=== PATIENT | female | born 1995 | race Caucasian/White ===

== ENCOUNTER 2016-08-03 13:15 | Outpatient (CLI) | payer MEDICAID ==
[2016-08-03] MEDS ORDERED: LACTATED RINGERS 500 ML IV ONE (13:48)
[2016-08-03 13:57] VITALS: BP 104/60
[2016-08-03 14:43] LABS: Bilirubin,Urine NEG (Negative); Blood,Urine NEG (Negative); Ketones,Urine NEG (Negative); Leukocyte Esterase,Urine NEG (Negative); Nitrite,Urine NEG (Negative); Protein,Urine <15 mg/dL mg/dL (Negative); Urobilinogen,Urine < 2.0 mg/dL (<2.0)
[2016-08-03] MEDS ORDERED: BRETHINE IVP ONE (15:17)
== END 2016-08-03 16:00 | disposition home or self-care (01) ==
LOC: TRG 13:15
PROVIDERS: ATTEND Obstetrics & Gynecology
DX: O47.02 False labor before 37 completed weeks of gestation, second trimester (principal); Z3A.27 27 weeks gestation of pregnancy
CPT/HCPCS: 59025; 81001; 96360; 96372; J3105; J7120

== ENCOUNTER 2016-09-26 18:22 | Outpatient (CLI) | payer MEDICAID ==
[2016-09-26 20:46] VITALS: BP 101/61
[2016-09-26] MEDS ORDERED: ZOFRAN IV ONE (20:52)
[2016-09-26] MEDS ORDERED: IMODIUM A-D PO ONE (21:30)
== END 2016-09-26 21:50 | disposition home or self-care (01) ==
LOC: TRG 18:22
PROVIDERS: ATTEND Obstetrics & Gynecology
DX: O47.03 False labor before 37 completed weeks of gestation, third trimester (principal); Z87.891 Personal history of nicotine dependence; Z3A.35 35 weeks gestation of pregnancy
CPT/HCPCS: 59025; J2405

== ENCOUNTER 2017-12-19 03:43 | Emergency (ER) | payer MEDICAID ==
[2017-12-19] MEDS ORDERED: XYLOCAINE 1% MPF 5 mL INFILTRATI ONE (06:49)
[2017-12-19] MEDS ORDERED: ZITHROMAX PO ONE (06:49)
[2017-12-19] MEDS ORDERED: ROCEPHIN IM ONE (06:49)
--- NOTE | 2017-12-19 06:53 | Emergency Department Report ---
ED Female HPI - General Chief complaint: Urogenital-Female Stated complaint: LOWER STOMACH PAIN VAGINAL DISCHARGE Time Seen by Provider: 12/19/17 06:44 Source: patient Mode of arrival: Ambulatory Limitations: No Limitations - History of Present Illness Initial comments: Patient is 22 years old female with no significant past medical history except for gonorrhea while she was a few month ago. Patient stated that she received Rocephin and Zithromax and that cured her symptoms but she had 6 or the same partner who gave had gonorrhea in the beginning. Patient presented with vaginal discharge for more than one month now associated his lower abdominal pain. Patient denied any vomiting or urinary symptoms. MD Complaint: vaginal discharge - Related Data Previous Rx's Medication Instructions Recorded Last Taken Type Famotidine [Pepcid] 20 mg PO BID #30 tablet 03/03/16 Unknown Rx Vit-Fe Fumar-FA [ 1 tab PO QDAY #30 tablet 03/03/16 Unknown Rx Vitamin] Ferrous Sulfate [Feosol 325 MG tab] 325 mg PO BID #60 tablet 10/24/16 Unknown Rx Ibuprofen [Motrin 800 MG tab] 800 mg PO Q6H PRN #30 tablet 10/24/16 Unknown Rx oxyCODONE /ACETAMINOPHEN [Percocet 1 - 2 tab PO Q4H PRN #30 tablet 10/24/16 Unknown Rx 5/325 mg] Allergies Allergy/AdvReac Type Severity Reaction Status Date / Time No Known Allergies Allergy Verified 03/03/16 05:20 ED Review of Systems ROS: Stated complaint: LOWER STOMACH PAIN VAGINAL DISCHARGE Other details as noted in HPI Comment: All other systems reviewed and negative Constitutional: denies: chills, fever Respiratory: denies: cough, orthopnea, shortness of breath, SOB with exertion, SOB at rest, wheezing Cardiovascular: denies: chest pain, palpitations Gastrointestinal: abdominal pain, nausea. denies: vomiting, diarrhea, constipation, hematemesis, melena, hematochezia Genitourinary: discharge. denies: urgency, dysuria, frequency, abnormal menses Neurological: denies: headache, weakness, numbness, paresthesias, confusion, abnormal gait, vertigo ED Past Medical Hx - Past Medical History Previous Medical History?: Yes Hx Hypertension: No Hx Congestive Heart Failure: No Hx Diabetes: No Hx Deep Vein Thrombosis: No Hx Renal Disease: No Hx Sickle Cell Disease: No Hx Seizures: No Hx Asthma: Yes (as a child) Hx COPD: No Hx HIV: No - Surgical History Past Surgical History?: Yes Additional Surgical History: c section x1 - Social History Smoking Status: Never Smoker Substance Use Type: Alcohol - Medications Home Medications: Home Medications Medication Instructions Recorded Confirmed Last Taken Type Famotidine [Pepcid] 20 mg PO BID #30 tablet 03/03/16 10/24/16 Unknown Rx Vit-Fe Fumar-FA [ 1 tab PO QDAY #30 tablet 03/03/16 10/24/16 Unknown Rx Vitamin] Ferrous Sulfate [Feosol 325 MG tab] 325 mg PO BID #60 tablet 10/24/16 Unknown Rx Ibuprofen [Motrin 800 MG tab] 800 mg PO Q6H PRN #30 tablet 10/24/16 Unknown Rx oxyCODONE /ACETAMINOPHEN [Percocet 1 - 2 tab PO Q4H PRN #30 tablet 10/24/16 Unknown Rx 5/325 mg] ED Physical Exam - General Limitations: No Limitations General appearance: alert, in no apparent distress - Head Head exam: Present: atraumatic, normocephalic, normal inspection - Eye Eye exam: Present: normal appearance, PERRL - ENT ENT exam: Present: normal exam, normal orophraynx - Neck Neck exam: Present: normal inspection, full ROM. Absent: tenderness, meningismus, lymphadenopathy, thyromegaly - Respiratory Respiratory exam: Present: normal lung sounds bilaterally. Absent: respiratory distress, wheezes, rales, rhonchi, stridor, chest wall tenderness, accessory muscle use, decreased breath sounds, prolonged expiratory - Cardiovascular Cardiovascular Exam: Present: regular rate, normal rhythm, normal heart sounds - GI/Abdominal GI/Abdominal exam: Present: soft, normal bowel sounds. Absent: distended, tenderness, guarding, rebound, rigid, organomegaly, mass, bruit, pulsatile mass , hernia - Extremities Exam Extremities exam: Present: normal inspection, full ROM, normal capillary refill - Back Exam Back exam: Present: normal inspection, full ROM. Absent: tenderness, CVA tenderness (R), CVA tenderness (L), muscle spasm, paraspinal tenderness, vertebral tenderness - Neurological Exam Neurological exam: Present: alert, oriented X3, CN II-XII intact, normal gait, reflexes normal - Skin Skin exam: Present: warm, intact, normal color ED Course Vital Signs 12/19/17 05:03 Temperature 98.4 F Pulse Rate 60 Respiratory 18 Rate Blood Pressure 104/68 O2 Sat by Pulse 100 Oximetry Critical care attestation.: If time is entered above; I have spent that time in minutes in the direct care of this critically ill patient, excluding procedure time. ED Disposition Clinical Impression: STD (female) Disposition: DC-01 TO HOME OR SELFCARE Is pt being admited?: No Condition: Stable Instructions: Safe Sex (ED), Sexually Transmitted Diseases (ED) Referrals: PRIMARY CARE, [Primary Care Provider] - 3-5 Days
[2017-12-19] MEDS ORDERED: XYLOCAINE 1% 20 mL ONE (07:00)
[2017-12-19 07:01] LABS: Bacteria,Urine 1+ /HPF (Negative); Bilirubin,Urine NEG (Negative); Blood,Urine LG (Negative); Color,Urine Yellow (Yellow); Mucus,Urine 1+ /HPF
[2017-12-19 07:09] LABS: HCG Qualitative,Urine Negative (Negative); RBC,Urine > 182.0 /HPF (0.0-6.0)
[2017-12-19 07:47] VITALS: BP 117/76
== END 2017-12-19 07:46 | disposition home or self-care (01) ==
LOC: ED 03:43
DX: A64 Unspecified sexually transmitted disease (principal); J45.909 Unspecified asthma, uncomplicated
CPT/HCPCS: 81001; 81025; 96372; 99283; J0696

== ENCOUNTER 2020-03-19 21:26 | Outpatient (CLI) | payer MEDICAID, OTHER ==
[2020-03-19 22:09] VITALS: BP 113/67
[2020-03-19 23:00] LABS: Amphetamine Screen,Urine PRESUMPTIVE NEGATIVE; Benzodiazepines Screen,Urine PRESUMPTIVE NEGATIVE; Cannabinoid Screen,Urine PRESUMPTIVE NEGATIVE; Cocaine Screen,Urine PRESUMPTIVE NEGATIVE; Methadone Screen,Urine PRESUMPTIVE NEGATIVE; Opiate Screen,Urine PRESUMPTIVE NEGATIVE
[2020-03-19 23:03] LABS: Bacteria,Urine 2+ /HPF (Negative); Bilirubin,Urine NEG (Negative); Blood,Urine NEG (Negative); Color,Urine Yellow (Yellow); Mucus,Urine FEW /HPF; Urobilinogen,Urine < 2.0 mg/dL (<2.0)
--- NOTE | 2020-03-20 00:28 | Ultrasound Report ---
ULTRASOUND OBSTETRIC, 03/19/2020 CLINICAL INFORMATION/INDICATION: Evaluate well-being COMPARISON: No prior studies are available for comparison FINDINGS: There is a single intrauterine . BPD = 8.6 cm = 34 weeks, 6 day(s). Head circumference = 31.2 cm = 34 weeks, 6 day(s). Abdominal circumference = 31.8 cm = 35 weeks, 5 day(s). Femur length = 6.9 cm = 35 weeks, 1 day(s). Overall estimated sonographic age = 35 weeks, 1 day(s). heart rate is 140 beats per minute. Estimated weight is 2662 grams. position is cephalic. Placenta is anterior and grade 2 . Amniotic fluid volume appears normal measuring 7.6 cm Impression: 1. Single living intrauterine with estimated sonographic age of 35 weeks, 1 day(s). Signer Name: Karime Catherine MD Signed: 03/20/2020 12:23 AM Workstation Name: [id number]
== END 2020-03-20 00:15 | disposition home or self-care (01) ==
LOC: TRG 21:26 → APU 21:30 → TRG 03-20 00:15
PROVIDERS: ATTEND Obstetrics & Gynecology
DX: O47.03 False labor before 37 completed weeks of gestation, third trimester (principal); Z3A.35 35 weeks gestation of pregnancy
CPT/HCPCS: 59025; 76805; 80307; 81001

== ENCOUNTER 2020-04-28 22:22 | Observation (INO) | payer OTHER ==
--- NOTE | 2020-04-28 23:54 | Emergency Department Report ---
ED Neuro Deficit HPI - General Chief Complaint: Neuro Symptoms/Deficit Stated Complaint: TWITCHING/FAINTING/CONFUSION Time Seen by Provider: 04/28/20 23:49 Source: patient Mode of arrival: Ambulatory Limitations: No Limitations - History of Present Illness Initial Comments: Patient is a 24-year-old female that presents emergency room with complaints of numbness, tingling, confusion, syncope and possible seizure. Patient states that her twitching and numbness started 3 days ago. Patient states that her numbness tingling started 3 days ago. Patient states that this evening she had a syncopal episode that was witnessed by her brother. The patient states that her brother told her that she was shaking and woke up confused. Patient states that she had a baby 23 days ago. Patient states that her was uncomplicated. Patient states that she is also have difficulty walking and weakness in her legs that started after the syncopal and seizure-like activity. Patient states that the seizure and syncopal episodes were at 6 PM today. Patient denies recent travel. Patient denies recent international travel. Patient denies exposure to the novel coronavirus. Patient denies sick contacts. Patient denies fever and chills. Patient denies cough. Patient denies diarrhea. Patient denies coming in contact with anybody with symptoms of the novel coronavirus. -: Sudden Location: left leg, right leg Presenting Symptoms: Present: Altered Mental Status History of same: No Place: home Severity: severe Improves With: none Worsens With: none On Anticoagulants: No Context: sudden onset Associated Symptoms: confusion, seizures, weakness. denies: chest pain, cough, diaphoresis, fever/chills, malise, nausea/vomiting, vertigo, shortness of breath, syncope Treatments Prior to Arrival: none - Related Data Home Medications: Previous Rx's Medication Instructions Recorded Last Taken Type Ibuprofen [Motrin 800 MG tab] 800 mg PO TID PRN #30 tablet 04/05/20 Unknown Rx oxyCODONE /ACETAMINOPHEN [Percocet 1 - 2 tab PO Q6HR PRN #14 tablet 04/05/20 Unknown Rx 5/325 mg] Allergies/Adverse Reactions: Allergies Allergy/AdvReac Type Severity Reaction Status Date / Time No Known Allergies Allergy Verified 03/03/16 05:20 ED Review of Systems ROS: Stated complaint: TWITCHING/FAINTING/CONFUSION Other details as noted in HPI Constitutional: weakness. denies: chills, fever Eyes: denies: eye pain, eye discharge, vision change ENT: denies: ear pain, throat pain Respiratory: denies: cough, shortness of breath, wheezing Cardiovascular: denies: chest pain, palpitations Endocrine: no symptoms reported Gastrointestinal: denies: abdominal pain, nausea, diarrhea Genitourinary: denies: urgency, dysuria, discharge Musculoskeletal: denies: back pain, joint swelling, arthralgia Skin: denies: rash, lesions Neurological: weakness, numbness, confusion, abnormal gait. denies: headache Psychiatric: denies: anxiety, depression Hematological/Lymphatic: denies: easy bleeding, easy bruising ED Past Medical Hx - Past Medical History Previous Medical History?: Yes Hx Hypertension: No Hx Heart Attack/AMI: No Hx Congestive Heart Failure: No Hx Diabetes: No Hx Deep Vein Thrombosis: No Hx Renal Disease: Yes (kidney infection 09/2019) Hx Sickle Cell Disease: No Hx Seizures: No Hx Asthma: Yes (as a child) Hx COPD: No Hx HIV: No - Surgical History Past Surgical History?: No Additional Surgical History: c section x1 - Family History Family history: no significant - Social History Smoking Status: Never Smoker Substance Use Type: None - Medications Home Medications: Home Medications Medication Instructions Recorded Confirmed Last Taken Type Ibuprofen [Motrin 800 MG tab] 800 mg PO TID PRN #30 tablet 04/05/20 Unknown Rx oxyCODONE /ACETAMINOPHEN [Percocet 1 - 2 tab PO Q6HR PRN #14 tablet 04/05/20 Unknown Rx 5/325 mg] ED Neuro Physical Exam - General Limitations: No Limitations General appearance: alert, in no apparent distress Suspected Stroke: No - Head Head exam: Present: atraumatic, normocephalic - Eye Eye exam: Present: normal appearance, PERRL Pupils: Present: normal accommodation - ENT ENT exam: Present: mucous membranes moist - Neck Neck exam: Present: normal inspection - Respiratory Respiratory exam: Present: normal lung sounds bilaterally. Absent: respiratory distress - Cardiovascular Cardiovascular Exam: Present: regular rate, normal rhythm. Absent: systolic murmur, diastolic murmur, rubs, gallop - GI/Abdominal GI/Abdominal exam: Present: soft, normal bowel sounds - Rectal Rectal exam: Present: deferred - Extremities Exam Extremities exam: Present: normal inspection - Back Exam Back exam: Present: normal inspection - Neurological Exam Neurological exam: Present: alert, oriented X3, CN II-XII intact, abnormal gait - NIHSS Assessment Interval: Baseline 1a. Level of Consciousness: alert/keenly responsive 1b. LOC Questions: answers both correctly 1c. LOC Commands: performs tasks correctly 2. Best Gaze: normal 3. Visual: no visual loss 4. Facial Palsy: normal symmetrical movement 5b. Motor Arm Right: no drift 5a. Motor Arm Left: no drift 6a. Motor Leg Left: drift 6b. Motor Leg Right: drift 7. Limb Ataxia: absent 8. Sensory: normal 9. Best Language: no aphasia 10. Dysarthria: normal 11. Extinction/Inattention: no abnormality Total Score: 2 Stroke Severity: Minor Stroke - Psychiatric Psychiatric exam: Present: normal affect, normal mood - Skin Skin exam: Present: warm, dry, intact, normal color. Absent: rash ED Course Vital Signs 04/28/20 04/29/20 23:31 03:41 Temperature 98.1 F Pulse Rate 73 Respiratory 16 16 Rate Blood Pressure 103/66 O2 Sat by Pulse 99 Oximetry - Reevaluation(s) Reevaluation #1: I discussed all results with patient. I discussed plan of care with patient. Patient agrees with plan of care and admission. Patient to be admitted to the hospitalist service. 04/29/20 02:41 - Consultations Consultation #1: I discussed case with neurologist. Neurologist states he will see the patient after she returned from CT scan. The neurologist recommends Keppra along with the magnesium drip. 04/29/20 00:10 Neurologist recommends admission and MRI as well as an EEG. Neurology is going to put labs that he recommends in his note. 04/29/20 00:26 Consultation #2: I discussed the case with Dr. Nguyễn, RELIGIOUS EDUCATION DIRECTOR. Dr. Nguyễn states they can consult on the patient if the primary team needs AIRPLANE ENGINEER services. 04/29/20 01:20 Consultation #3: Hospitalist consulted for admission. Hospitalist to admit patient. 04/29/20 02:41 - Lab Data Result diagrams: 04/29/20 00:24 04/29/20 00:24 Lab Results 04/29/20 04/29/20 04/29/20 Range/Units 00:24 00:24 00:24 WBC 5.3 (4.5-11.0) K/mm3 RBC 4.91 (3.65-5.03) M/mm3 Hgb 12.1 (10.1-14.3) gm/dl Hct 37.8 (30.3-42.9) % MCV 77 L (79-97) fl MCH 25 L (28-32) pg MCHC 32 (30-34) % RDW 16.6 H (13.2-15.2) % Plt Count 204 (140-440) K/mm3 Lymph % (Auto) 26.7 (13.4-35.0) % [place] % (Auto) 7.6 H (0.0-7.3) % Eos % (Auto) 2.0 (0.0-4.3) % Baso % (Auto) 0.4 (0.0-1.8) % Lymph # (Auto) 1.4 (1.2-5.4) K/mm3 [place] # (Auto) 0.4 (0.0-0.8) K/mm3 Eos # (Auto) 0.1 (0.0-0.4) K/mm3 Baso # (Auto) 0.0 (0.0-0.1) K/mm3 Seg Neutrophils % 63.3 (40.0-70.0) % Seg Neutrophils # 3.3 (1.8-7.7) K/mm3 Sodium 139 (137-145) mmol/L Potassium 4.2 (3.6-5.0) mmol/L Chloride 104.6 (98-107) mmol/L Carbon Dioxide 24 (22-30) mmol/L Anion Gap 15 mmol/L BUN 9 (7-17) mg/dL Creatinine 0.6 (0.6-1.2) mg/dL Estimated GFR > 60 ml/min BUN/Creatinine Ratio 15 % Glucose 98 (65-100) mg/dL Calcium 9.2 (8.4-10.2) mg/dL Total Bilirubin 0.20 (0.1-1.2) mg/dL AST 17 (5-40) units/L ALT 18 (7-56) units/L Alkaline Phosphatase 125 (35-129) units/L Total Protein 7.2 (6.3-8.2) g/dL Albumin 4.0 (3.9-5) g/dL Albumin/Globulin Ratio 1.3 % HCG, Qual Negative (Negative) Urine Color (Yellow) Urine Turbidity (Clear) Urine pH (5.0-7.0) Ur Specific [place] (1.003-1.030) Urine Protein (Negative) mg/dL Urine Glucose (UA) (Negative) mg/dL Urine Ketones (Negative) mg/dL Urine Blood (Negative) Urine Nitrite (Negative) Urine Bilirubin (Negative) Urine Urobilinogen (<2.0) mg/dL Ur Leukocyte Esterase (Negative) Urine WBC (Auto) (0.0-6.0) /HPF Urine RBC (Auto) (0.0-6.0) /HPF U Epithel Cells (Auto) (0-13.0) /HPF Urine Bacteria (Auto) (Negative) /HPF Urine Mucus /HPF Urine Yeast (Budding) /HPF 04/29/20 Range/Units 03:12 WBC (4.5-11.0) K/mm3 RBC (3.65-5.03) M/mm3 Hgb (10.1-14.3) gm/dl Hct (30.3-42.9) % MCV (79-97) fl MCH (28-32) pg MCHC (30-34) % RDW (13.2-15.2) % Plt Count (140-440) K/mm3 Lymph % (Auto) (13.4-35.0) % [place] % (Auto) (0.0-7.3) % Eos % (Auto) (0.0-4.3) % Baso % (Auto) (0.0-1.8) % Lymph # (Auto) (1.2-5.4) K/mm3 [place] # (Auto) (0.0-0.8) K/mm3 Eos # (Auto) (0.0-0.4) K/mm3 Baso # (Auto) (0.0-0.1) K/mm3 Seg Neutrophils % (40.0-70.0) % Seg Neutrophils # (1.8-7.7) K/mm3 Sodium (137-145) mmol/L Potassium (3.6-5.0) mmol/L Chloride (98-107) mmol/L Carbon Dioxide (22-30) mmol/L Anion Gap mmol/L BUN (7-17) mg/dL Creatinine (0.6-1.2) mg/dL Estimated GFR ml/min BUN/Creatinine Ratio % Glucose (65-100) mg/dL Calcium (8.4-10.2) mg/dL Total Bilirubin (0.1-1.2) mg/dL AST (5-40) units/L ALT (7-56) units/L Alkaline Phosphatase (35-129) units/L Total Protein (6.3-8.2) g/dL Albumin (3.9-5) g/dL Albumin/Globulin Ratio % HCG, Qual (Negative) Urine Color Yellow (Yellow) Urine Turbidity Cloudy (Clear) Urine pH 6.0 (5.0-7.0) Ur Specific [place] 1.004 (1.003-1.030) Urine Protein <15 mg/dl (Negative) mg/dL Urine Glucose (UA) Neg (Negative) mg/dL Urine Ketones Neg (Negative) mg/dL Urine Blood Lg (Negative) Urine Nitrite Neg (Negative) Urine Bilirubin Neg (Negative) Urine Urobilinogen < 2.0 (<2.0) mg/dL Ur Leukocyte Esterase Lg (Negative) Urine WBC (Auto) 26.0 H (0.0-6.0) /HPF Urine RBC (Auto) 7.0 (0.0-6.0) /HPF U Epithel Cells (Auto) 21.0 H (0-13.0) /HPF Urine Bacteria (Auto) 2+ (Negative) /HPF Urine Mucus Few /HPF Urine Yeast (Budding) 1+ /HPF - Radiology Data Radiology results: report reviewed, image reviewed CT HEAD WITHOUT CONTRAST INDICATION: Syncope, confusion, unstable gait TECHNIQUE: All CT scans at this location are performed using CT dose reduction for ALARA by means of automated exposure control. COMPARISON: None available. FINDINGS: BRAIN: No hemorrhage or mass effect are seen. No evidence of acute infarction is noted. Mild motion artifact is seen superiorly. ORBITS: Normal as visualized. SOFT TISSUES OF HEAD: Normal. CALVARIUM: Normal. VISUALIZED PARANASAL SINUSES AND MASTOID AIR CELLS: Clear. ADDITIONAL FINDINGS: None. IMPRESSION: No acute intracranial abnormality. - Medical Decision Making Patient is a 24-year-old female that presents emergency room with multiple complaints. Patient complaints include numbness, tingling, seizure, syncope, confusion, difficulties walking. Patient delivered via 23 days ago. Patient had a head CT which was negative for acute finding. Neurology consult. Neurology recommendations received. Patient given magnesium and Keppra early and ER stay. No further seizure activity noted. Patient's labs done and essentially unremarkable except for UTI. Patient admitted to the hospital service for further evaluation treatment. - Differential Diagnosis Seizure, syncope, electrolyte imbalance, UTI, eclampsia Critical Care Time: Yes Critical care time in (mins) excluding proc time.: 35 Critical care attestation.: If time is entered above; I have spent that time in minutes in the direct care of this critically ill patient, excluding procedure time. Critical Care Time: 35 minutes ED Disposition Clinical Impression: Seizure-like activity, Confusion, Weakness, Difficulty walking, Seizure Syncope Qualifiers: Syncope type: unspecified Qualified Code(s): R55 - Syncope and collapse Disposition: DC-09 OP ADMIT IP TO THIS HOSP Is pt being admited?: No Does the pt Need Aspirin: No Condition: Critical Instructions: Syncope (ED) Time of Disposition: 02:42
[2020-04-29] MEDS ORDERED: MAGNESIUM SULFATE 2 GM/50 ML BAG IV ONE (00:01)
[2020-04-29] MEDS ORDERED: levETIRAcetam 1000 MG/NS 0.75% 1,000 MG/100 ML BAG IV ONE (00:13)
--- NOTE | 2020-04-29 00:24 | Emergency Department Report ---
ED Neuro Deficit HPI - General Chief Complaint: Neuro Symptoms/Deficit Stated Complaint: TWITCHING/FAINTING/CONFUSION Time Seen by Provider: 04/28/20 23:49 Source: patient Mode of arrival: Ambulatory Limitations: No Limitations - History of Present Illness Initial Comments: [facility] Tele[facility]rology Consult Services Stat Consult Date of Service: 04/28/2020 23:51:40 Impression: R56.9 - Seizures Comments/Sign-Out: Acute onset seizure like activity with continued tremors of the right arm and leg. Suggest admit for advanced imaging and labs to look for etiology. CT HEAD: Showed No Acute Hemorrhage or Acute Core Infarct Metrics: [employer] Notification Time: 04/28/2020 23:49:59 Stamp Time: 04/28/2020 23:51:40 Our recommendations are outlined below. Recommendations: Start Keppra 500 mg BID EEG MRI brain with and without contrast Cardiac syncopal work up [employer]atics B12, autoimmune screen (ABDI, SSA etc), TFTs, ammonia, copper, zinc Agree with Magnesium Disposition: Neurology Follow Up Recommended Sign Out: Discussed with Emergency Department Provider Chief Complaint: Seizure like activity History of Present Illness: Patient is a 24 year old Female. 24F with recent post here for acute neuro changes States that she has had numbness and tingling starting 3 days ago generalized. Before coming in she had a syncopal episode that was witnessed by her brother with seizure like activity. She was confused after the event which has improved. Had a post 23 days ago. Examination: BP(103/65), Pulse(82), 1A: Level of Consciousness - Alert; keenly responsive + 0 1B: Ask Month and Age - Both Questions Right + 0 1C: Blink Eyes & Squeeze Hands - Performs Both Tasks + 0 2: Test Horizontal Extraocular Movements - Normal + 0 3: Test Visual Andersen - No Visual Loss + 0 4: Test Facial Palsy (Use Grimace if Obtunded) - Normal symmetry + 0 5A: Test Left Arm Motor Drift - No Drift for 10 Seconds + 0 5B: Test Right Arm Motor Drift - No Drift for 10 Seconds + 0 6A: Test Left Leg Motor Drift - No Drift for 5 Seconds + 0 6B: Test Right Leg Motor Drift - No Drift for 5 Seconds + 0 7: Test Limb Ataxia (FNF/Heel-Hassan) - No Ataxia + 0 8: Test Sensation - Normal; No sensory loss + 0 9: Test Language/Aphasia - Normal; No aphasia + 0 10: Test Dysarthria - Normal + 0 11: Test Extinction/Inattention - No abnormality + 0 NIHSS Score: 0 Due to the immediate potential for life-threatening deterioration due to underlying acute neurologic illness, I spent 25 minutes providing critical care. This time includes time for face to face visit via telemedicine, review of medical records, imaging studies and discussion of findings with providers, the patient and/or family. Dr Kevon Dong [employer] Case [id number] Location: left leg, right leg History of same: No Place: home Severity: severe Improves With: none Worsens With: none On Anticoagulants: No Treatments Prior to Arrival: none - Related Data Home Medications: Previous Rx's Medication Instructions Recorded Last Taken Type Ibuprofen [Motrin 800 MG tab] 800 mg PO TID PRN #30 tablet 04/05/20 Unknown Rx oxyCODONE /ACETAMINOPHEN [Percocet 1 - 2 tab PO Q6HR PRN #14 tablet 04/05/20 Unknown Rx 5/325 mg] Allergies/Adverse Reactions: Allergies Allergy/AdvReac Type Severity Reaction Status Date / Time No Known Allergies Allergy Verified 03/03/16 05:20 ED Review of Systems ROS: Stated complaint: TWITCHING/FAINTING/CONFUSION Other details as noted in HPI Constitutional: weakness. denies: chills, fever Eyes: denies: eye pain, eye discharge, vision change ENT: denies: ear pain, throat pain Respiratory: denies: cough, shortness of breath, wheezing Cardiovascular: denies: chest pain, palpitations Endocrine: no symptoms reported Gastrointestinal: denies: abdominal pain, nausea, diarrhea Genitourinary: denies: urgency, dysuria, discharge Musculoskeletal: denies: back pain, joint swelling, arthralgia Skin: denies: rash, lesions Neurological: weakness, numbness, confusion, abnormal gait. denies: headache Psychiatric: denies: anxiety, depression Hematological/Lymphatic: denies: easy bleeding, easy bruising ED Past Medical Hx - Past Medical History Previous Medical History?: Yes Hx Hypertension: No Hx Heart Attack/AMI: No Hx Congestive Heart Failure: No Hx Diabetes: No Hx Deep Vein Thrombosis: No Hx Renal Disease: Yes (kidney infection 09/2019) Hx Sickle Cell Disease: No Hx Seizures: No Hx Asthma: Yes (as a child) Hx COPD: No Hx HIV: No - Surgical History Past Surgical History?: No Additional Surgical History: c section x1 - Social History Smoking Status: Never Smoker Substance Use Type: None - Medications Home Medications: Home Medications Medication Instructions Recorded Confirmed Last Taken Type Ibuprofen [Motrin 800 MG tab] 800 mg PO TID PRN #30 tablet 04/05/20 Unknown Rx oxyCODONE /ACETAMINOPHEN [Percocet 1 - 2 tab PO Q6HR PRN #14 tablet 04/05/20 Unknown Rx 5/325 mg] ED Neuro Physical Exam - General Limitations: No Limitations General appearance: alert, in no apparent distress Suspected Stroke: Yes (no) - NIHSS Assessment Interval: Baseline (0) 1a. Level of Consciousness: alert/keenly responsive 1b. LOC Questions: answers both correctly 1c. LOC Commands: performs tasks correctly 2. Best Gaze: normal 3. Visual: no visual loss 4. Facial Palsy: normal symmetrical movement 5b. Motor Arm Right: no drift 5a. Motor Arm Left: no drift 6a. Motor Leg Left: no drift 6b. Motor Leg Right: no drift 7. Limb Ataxia: absent 8. Sensory: normal 9. Best Language: no aphasia 10. Dysarthria: normal 11. Extinction/Inattention: no abnormality Total Score: 0 Stroke Severity: No Stroke Symptoms ED Course Vital Signs 04/28/20 23:31 Temperature 98.1 F Pulse Rate 73 Respiratory 16 Rate Blood Pressure 103/66 O2 Sat by Pulse 99 Oximetry Critical care attestation.: If time is entered above; I have spent that time in minutes in the direct care of this critically ill patient, excluding procedure time. ED Disposition Clinical Impression: Seizure Disposition: OP ADMIT IP TO THIS HOSP Is pt being admited?: Yes Condition: Stable Instructions: Syncope (ED) Referrals: PRIMARY CARE, [Primary Care Provider] - 3-5 Days
--- NOTE | 2020-04-29 00:26 | Cat Scan Report ---
CT HEAD WITHOUT CONTRAST INDICATION: Syncope, confusion, unstable gait TECHNIQUE: All CT scans at this location are performed using CT dose reduction for ALARA by means of automated exposure control. COMPARISON: None available. FINDINGS: BRAIN: No hemorrhage or mass effect are seen. No evidence of acute infarction is noted. Mild motion a rtifact is seen superiorly. ORBITS: Normal as visualized. SOFT TISSUES OF HEAD: Normal. CALVARIUM: Normal. VISUALIZED PARANASAL SINUSES AND MASTOID AIR CELLS: Clear. ADDITIONAL FINDINGS: None. IMPRESSION: No acute intracranial abnormality. Signer Name: Dat Moya MD Signed: 04/29/2020 12:21 AM Workstation Name: [id number]
[2020-04-29] MEDS: MAGNESIUM SULFATE 40GM/1000ML 40 GM/1,000 ML BAG IV ONE ×2 (00:46→01:50)
[2020-04-29 02:10] LABS: Basophils % (Auto) 0.4 % (0.0-1.8); Eosinophils # (Auto) 0.1 K/mm3 (0.0-0.4); Hematocrit 37.8 % (30.3-42.9); Hemoglobin 12.1 gm/dl (10.1-14.3); Lymphocytes # (Auto) 1.4 K/mm3 (1.2-5.4); Lymphocytes % (Auto) 26.7 % (13.4-35.0); Mean Corpuscular HGB Conc 32 % (30-34); Mean Corpuscular Volume 77 fl (79-97); Monocytes # (Auto) 0.4 K/mm3 (0.0-0.8); Monocytes % (Auto) 7.6 % (0.0-7.3); Platelet Count 204 K/mm3 (140-440); Red Blood Count 4.91 M/mm3 (3.65-5.03); Red Cell Distribution Width 16.6 % (13.2-15.2)
[2020-04-29 02:28] LABS: Alanine Aminotransferase 18 units/L (7-56); Blood Urea Nitrogen 9 mg/dL (7-17); Calcium 9.2 mg/dL (8.4-10.2); Hemolysis Index 1
[2020-04-29 02:31] LABS: BUN/Creatinine Ratio 15
[2020-04-29 03:32] LABS: Bacteria,Urine 2+ /HPF (Negative); Bilirubin,Urine NEG (Negative); Blood,Urine LG (Negative); Color,Urine Yellow (Yellow); Mucus,Urine FEW /HPF; Protein,Urine <15 mg/dL mg/dL (Negative); Urobilinogen,Urine < 2.0 mg/dL (<2.0)
[2020-04-29] MEDS ORDERED: ONDANSETRON 4 MG/2 ML INJ IV PRN (03:41)
[2020-04-29] MEDS ORDERED: ACETAMINOPHEN 325 MG TAB PO PRN (03:41)
[2020-04-29] MEDS ORDERED: MAGNESIUM HYDROXIDE (MOM) ORAL LIQD UDC PO PRN (03:41)
[2020-04-29] MEDS ORDERED: MORPHINE 2 MG/1 ML INJ IV PRN (03:41)
--- NOTE | 2020-04-29 03:51 | History and Physical Report ---
History of Present Illness Date of examination: 04/29/20 Date of admission: 04/29/2020 Chief complaint: Seizure disorder Syncope History of present illness: 4-year-old -[place] African female presenting to the emergency room today having had syncope and possible seizures at home. Patient indicates that she was having some twitching and numbness in her extremities about 3 days ago. She was said to have had a syncopal episode witnessed by her brother at home today. She was informed that she was shaking and subsequently became confused. Patient is 23 days and indicates that she did not have any complications during her . She has been having difficulty walking as she has weakness in the legs especially on the right lower extremity. She has also had some headache but denies any dizziness. She denies any blurry vision, no nausea vomiting, denies any neck pain, no chest pain or shortness of breath, no fever or chills, no hematuria or dysuria. She denies any sick contacts and no recent travel. She denies any contact with anyone with COVID-19. Patient denies any history of seizure disorder however she indicates that she has strong family history of seizures. Work-up in the emergency room today, CT scan of the head was unremarkable. Urinalysis reveals a UTI. Patient was evaluated by the tele-neurologist and recommendation is to have thyroid function tests, zinc, copper, ammonia, vitamin B12, antinuclear antigen and SSA done. MRI of the brain with and without contrast was also recommended. Patient has been started on IV Keppra for possible seizures. Past History Past Medical History: other (Asthma) Past Surgical History: Social history: no significant social history Family history: other (Seizures in mother) Medications and Allergies Allergies Allergy/AdvReac Type Severity Reaction Status Date / Time No Known Allergies Allergy Verified 03/03/16 05:20 Home Medications Medication Instructions Recorded Confirmed Last Taken Type Ibuprofen [Motrin 800 MG tab] 800 mg PO TID PRN #30 tablet 04/05/20 Unknown Rx oxyCODONE /ACETAMINOPHEN [Percocet 1 - 2 tab PO Q6HR PRN #14 tablet 04/05/20 Unknown Rx 5/325 mg] Active Meds: Active Medications Acetaminophen (Acetaminophen 325 Mg Tab) 650 mg PO Q4H PRN PRN Reason: Pain MILD(1-3)/Fever >100.5/ESTRADA Enoxaparin Sodium (Enoxaparin 40 Mg/0.4 Ml Inj) 40 mg SUB-Q QDAY@2200 YANNICK; Protocol Magnesium Sulfate (Magnesium Sulfate 40gm/1000ml) 40 gm in 1,000 mls @ 25 mls/hr IV ONCE ONE Stop: 04/30/20 15:53 Last Admin: 04/29/20 01:50 Dose: 1 gm/hr, 25 mls/hr Documented by: Levetiracetam 500 mg/ Dextrose 105 mls @ 400 mls/hr IV Q12HR [facility] Magnesium Hydroxide (Magnesium Hydroxide (Mom) Oral Liqd Udc) 30 ml PO Q4H PRN PRN Reason: Constipation Morphine Sulfate (Morphine 2 Mg/1 Ml Inj) 2 mg IV Q4H PRN PRN Reason: Pain, Moderate (4-6) Ondansetron HCl (Ondansetron 4 Mg/2 Ml Inj) 4 mg IV Q8H PRN PRN Reason: Nausea And Vomiting Sodium Chloride (Sodium Chloride 0.9% 10 Ml Flush Syringe) 10 ml IV BID YANNICK Sodium Chloride (Sodium Chloride 0.9% 10 Ml Flush Syringe) 10 ml IV PRN PRN PRN Reason: LINE FLUSH Review of Systems Constitutional: no fever, no chills Ears, nose, mouth and throat: no nasal congestion, no sore throat Cardiovascular: no chest pain, no palpitations Respiratory: no cough, no shortness of breath Gastrointestinal: no abdominal pain, no nausea, no vomiting Genitourinary Female: no pelvic pain, no flank pain, no dysuria, no hematuria Musculoskeletal: no neck pain, no low back pain Integumentary: no rash, no pruritis Neurological: weakness (Right lower extremity), numbness, tingling, seizures, syncope, headaches, no confusion Psychiatric: no anxiety, no depression Exam - Constitutional Vitals: Temp Pulse Resp BP Pulse Ox 98.1 F 73 16 103/66 99 04/28/20 23:31 04/28/20 23:31 04/29/20 03:41 04/28/20 23:31 04/28/20 23:31 General appearance: Present: no acute distress, well-nourished - EENT Eyes: Present: PERRL, EOM intact. Absent: scleral icterus ENT: hearing intact, clear oral mucosa, dentition normal - Neck Neck: Present: supple, normal ROM - Respiratory Respiratory effort: normal Respiratory: bilateral: CTA - Cardiovascular Rhythm: regular Heart Sounds: Present: S1 & S2. Absent: gallop, systolic murmur, diastolic murmur, rub - Extremities Extremities: no ischemia, pulses intact, pulses symmetrical, No edema, Full ROM Peripheral Pulses: within normal limits - Abdominal General gastrointestinal: Present: soft, non-tender, non-distended, normal bowel sounds. Absent: mass - Integumentary Integumentary: Present: clear, warm, dry. Absent: rash - Musculoskeletal Musculoskeletal: right sided weakness (Lower extremity weakness) - Psychiatric Psychiatric: appropriate mood/affect, intact judgment & insight, memory intact, cooperative - Neurologic Neurologic: CNII-XII intact, no focal deficits, moves all extremities Results - Labs CBC & Chem 7: 04/29/20 00:24 04/29/20 00:24 Labs: Abnormal lab results 04/29/20 04/29/20 Range/Units 00:24 03:12 MCV 77 L (79-97) fl MCH 25 L (28-32) pg RDW 16.6 H (13.2-15.2) % Sevier % (Auto) 7.6 H (0.0-7.3) % Urine WBC (Auto) 26.0 H (0.0-6.0) /HPF U Epithel Cells (Auto) 21.0 H (0-13.0) /HPF Assessment and Plan - Patient Problems (1) Seizure Current Visit: Yes Status: Acute Plan to address problem: Patient will be placed on seizure precautions. She has been started on IV Keppra. We will request neurology evaluation and follow-up. Patient scheduled for EEG. (2) Syncope Current Visit: Yes Status: Acute Qualifiers: Syncope type: unspecified Qualified Code(s): R55 - Syncope and collapse Plan to address problem: Etiology unclear. Possibly related to the seizure activity. 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 We will schedule for physical therapy evaluation. (4) DVT prophylaxis Current Visit: Yes Status: Acute Plan to address problem: Patient placed on subcutaneous Lovenox. (5) Full code status Current Visit: Yes Status: Acute Plan to address problem: Patient is a full code.
[2020-04-29] MEDS ORDERED: CEFEPIME/NS 2 GM/100 ML 2 GM/100 ML BAG IV ONE (05:18)
[2020-04-29] MEDS ORDERED: cefTRIAXone/NS 1 GM/50 ML 1 GM/50 ML BAG IV SCH (07:00)
[2020-04-29] MEDS ORDERED: CEFEPIME/NS 2 GM/100 ML 2 GM/100 ML BAG IV SCH (14:00)
--- NOTE | 2020-04-29 15:28 | Magnetic Resonance Report ---
MR brain wo/w con INDICATION / CLINICAL INFORMATION: Seizure disorder, Numbness. TECHNIQUE: Multiplanar, multisequence MR images of the brain were obtained. COMPARISON: None available. FINDINGS: INTRACRANIAL: No restricted diffusion. No hemorrhage. Ventricular caliber is normal. No extra-axial c ollection. No herniation. Major intracranial vascular flow voids are preserved. No hippocampal atroph y. No abnormal T2 signal hyperintensity of the mesial temporal lobes. Hippocampi demonstrate preserve d architecture. No heterotopia. No cortical dysplasia. No mass. ORBITS: No significant abnormality of visualized orbits. SINUSES / MASTOIDS: No significant abnormality of visualized sinuses and mastoid air cells. ADDITIONAL FINDINGS: None. IMPRESSION: 1. No significant intracranial abnormality. Signer Name: Fredi Manriquez MD Signed: 04/29/2020 3:24 PM Workstation Name: [id number]
[2020-04-29] MEDS: CEFEPIME/NS 1 GM/100 ML 1 GM/100 ML BAG IV SCH (15:45)
[2020-04-29] MEDS: levETIRAcetam 500 MG in DEXTROSE 5% IN WATER 100 ML IV SCH ×2 (15:45→21:31)
--- NOTE | 2020-04-29 19:21 | Event Note ---
Date: 04/29/20 I have seen and examined the patient at the bedside Patient was admitted this morning with syncope and seizure Placed on fall and seizure precautions, cannot drive until cleared by neurologist or primary care physician Extensive neuro work-up is in progress, no new episodes of seizures since admission Medical record reviewed agree with the current management Plan of care reviewed with the patient and her nurse
--- NOTE | 2020-04-29 19:23 | Consultation ---
History of Present Illness Consult date: 04/29/20 Reason for Consult: Seizure Chief complaint: I passed out. History of present illness: 24 yo female with hx of a 25-feet fall presents with an episode where she noticed jerking of her right arm and/or leg and then on the day of admission she was found by her brother on the floor next to her bed, confused. She notes that even two days prior she had some jerking of her right arm at time. She notes no acute: headaches, nausea, emesis, vertigo, changes in her primary senses, focal weakness/numbness, chest pressure, or palpitations. Past History Past Medical History: other (Asthma) Past Surgical History: Social history: no significant social history Family history: other (Seizures in mother) Medications and Allergies Allergies Allergy/AdvReac Type Severity Reaction Status Date / Time No Known Allergies Allergy Verified 03/03/16 05:20 Home Medications Medication Instructions Recorded Confirmed Last Taken Type Ibuprofen [Motrin 800 MG tab] 800 mg PO TID PRN #30 tablet 04/05/20 04/29/20 Unknown Rx oxyCODONE /ACETAMINOPHEN [Percocet 1 - 2 tab PO Q6HR PRN #14 tablet 04/05/20 04/29/20 Unknown Rx 5/325 mg] Active Meds: Active Medications Acetaminophen (Acetaminophen 325 Mg Tab) 650 mg PO Q4H PRN PRN Reason: Pain MILD(1-3)/Fever >100.5/ESTRADA Enoxaparin Sodium (Enoxaparin 40 Mg/0.4 Ml Inj) 40 mg SUB-Q QDAY@2200 YANNICK; Protocol Magnesium Sulfate (Magnesium Sulfate 40gm/1000ml) 40 gm in 1,000 mls @ 25 mls/hr IV ONCE ONE Stop: 04/30/20 15:53 Last Admin: 04/29/20 01:50 Dose: 1 gm/hr, 25 mls/hr Documented by: Levetiracetam 500 mg/ Dextrose 105 mls @ 400 mls/hr IV Q12HR YANNICK Last Admin: 04/29/20 15:45 Dose: 400 mls/hr Documented by: Cefepime HCl (Cefepime/Ns 1 Gm/100 Ml) 1 gm in 100 mls @ 200 mls/hr IV Q12H YANNICK; Protocol Last Admin: 04/29/20 15:45 Dose: 200 mls/hr Documented by: Magnesium Hydroxide (Magnesium Hydroxide (Mom) Oral Liqd Udc) 30 ml PO Q4H PRN PRN Reason: Constipation Morphine Sulfate (Morphine 2 Mg/1 Ml Inj) 2 mg IV Q4H PRN PRN Reason: Pain, Moderate (4-6) Last Admin: 04/29/20 17:39 Dose: 2 mg Documented by: Ondansetron HCl (Ondansetron 4 Mg/2 Ml Inj) 4 mg IV Q8H PRN PRN Reason: Nausea And Vomiting Sodium Chloride (Sodium Chloride 0.9% 10 Ml Flush Syringe) 10 ml IV BID YANNICK Last Admin: 04/29/20 15:46 Dose: 10 ml Documented by: Sodium Chloride (Sodium Chloride 0.9% 10 Ml Flush Syringe) 10 ml IV PRN PRN PRN Reason: LINE FLUSH Review of Systems All systems: negative (as per HPI;) Physical Examination - Vital Signs Vital Signs: Vital Signs Temp Pulse Resp BP Pulse Ox 98.1 F 73 16 103/66 99 04/28/20 23:31 04/28/20 23:31 04/28/20 23:31 04/28/20 23:31 04/28/20 23:31 - Physical Exam Narrative exam: Gen: nad, well-nourished; Head: normocephalic; Eyes: no gaze deviation; no ptosis; ENT: normal vocalization; CVS: warm and well-perfused; Pulm: no respiratory distress; GI: non-distended, protuberant; Ext: no edema at distal extremities; Skin: no acute rash or hives at distal extremities; Heme: no pathologic bruising or ecchymosis at distal extremities; Neuro: alert, oriented to name, age, month, year, surroundings, no dysarthria, no aphasia, CN 2 - PERRL, visual jung intact, CN 3, 4, 6 - EOMI, CN 5 - facial sensation symmetric to light touch, CN 7 - facial movement symmetric, CN 8 - hearing grossly intact, CN 9, 10 - uvula midline, CN 11 - shoulder movement symmetric, CN 12 - tongue midline; Motor - at least 4+/5 in all exts and 4/5 at right exts; Sensory - light touch decreased at right leg, Cerebellar - fnf /hts intact, Gait - deferred secondary to seizure precautions; Results - Laboratory Findings CBC and BMP: 04/29/20 00:24 04/29/20 00:24 Abnormal Lab Findings: Abnormal Labs 04/29/20 04/29/20 00:24 03:12 MCV 77 L MCH 25 L RDW 16.6 H Sawyer % (Auto) 7.6 H Urine WBC (Auto) 26.0 H U Epithel Cells (Auto) 21.0 H Assessment and Plan 24 yo female with hx of a 25-feet fall presents with an episode where she noticed jerking of her right arm and/or leg and then on the day of admission she was found by her brother on the floor next to her bed, confused. 1. Seizure - pending EEG and MRI Brain w/ wo contrast. 2. Convulsive Syncope / Presyncope - cta head/neck w/ wo contrast to r/o vertebral dissection secondary to hx of trauma. 3. Myoclonus - r/o underlying metabolic, toxic, infectious, or inflammatory etiology. 4. Right-sided weakness - MRI Cervical Spine w/ wo contrast; pt/ot evaluation/monitoring. Panda Cárdenas MD Neurology
[2020-04-29] MEDS ORDERED: ENOXAPARIN 40 MG/0.4 ML INJ SUB-Q SCH (22:00)
[2020-04-30] MEDS: CEFEPIME/NS 1 GM/100 ML 1 GM/100 ML BAG IV SCH ×2 (00:41→13:14)
[2020-04-30 06:29] LABS: Basophils % (Auto) 0.5 % (0.0-1.8); Eosinophils # (Auto) 0.2 K/mm3 (0.0-0.4); Eosinophils % (Auto) 3.4 % (0.0-4.3); Hematocrit 36.9 % (30.3-42.9); Hemoglobin 11.7 gm/dl (10.1-14.3); Lymphocytes # (Auto) 2.3 K/mm3 (1.2-5.4); Lymphocytes % (Auto) 40.2 % (13.4-35.0); Mean Corpuscular HGB Conc 32 % (30-34); Mean Corpuscular Volume 77 fl (79-97); Monocytes # (Auto) 0.5 K/mm3 (0.0-0.8); Monocytes % (Auto) 9.5 % (0.0-7.3); Platelet Count 216 K/mm3 (140-440); Red Blood Count 4.81 M/mm3 (3.65-5.03); Red Cell Distribution Width 16.9 % (13.2-15.2)
[2020-04-30 06:38] LABS: INR 0.93 (0.87-1.13)
[2020-04-30 06:44] LABS: Blood Urea Nitrogen 10 mg/dL (7-17); Calcium 8.1 mg/dL (8.4-10.2); Hemolysis Index 2
[2020-04-30 06:45] LABS: BUN/Creatinine Ratio 17
[2020-04-30] MEDS: levETIRAcetam 500 MG in DEXTROSE 5% IN WATER 100 ML IV SCH (10:33)
[2020-04-30 10:43] VITALS: BP 95/59
--- NOTE | 2020-04-30 12:47 | Cat Scan Report ---
CT angio neck INDICATION / CLINICAL INFORMATION: 24 years Female; Vertebral Dissection, hx of trauma. TECHNIQUE: Thin cut axial images obtained through the head during IV bolus contrast administration. S agittal, coronal, and 3 plane MIP reconstructions performed by the technologist. NASCET type criteria used evaluate stenoses. All CT scans at this location are performed using CT dose reduction for ALAR A by means of automated exposure control. COMPARISON: None available. FINDINGS: CAROTID ARTERIES: There is beam hardening artifact, particularly related to the dense contrast within the venous structures overlying the proximal vessels at. However, there is no clear evidence of sign ificant stenosis involving cervical carotid arteries by NASCET criteria. The visualized vessel simons demonstrate fairly smooth contour without CTA evidence of dissection. VERTEBRAL ARTERIES: The proximal left vertebral artery is also obscured by the overlying venous struc tures. However, there is no significant focal narrowing of the vertebral arteries. ARCH: The arch vessels are grossly unremarkable. ADDITIONAL FINDINGS: None. IMPRESSION: There is no CTA evidence of significant stenosis involving the visualized cervical carotid or vertebr al arteries Signer Name: Sebastien Shrestha MD Signed: 04/30/2020 12:43 PM Workstation Name: [id number]
--- NOTE | 2020-04-30 13:12 | Cat Scan Report ---
CT angio head INDICATION / CLINICAL INFORMATION: 24 years Female; MAIN. TECHNIQUE: Thin cut axial images obtained through the head during IV bolus contrast administration. S agittal, coronal, and 3 plane MIP reconstructions performed by the technologist. NASCET type criteria used evaluate stenoses. Automated exposure control utilized for radiation reduction purposes. COMPARISON: None available. FINDINGS: INTERNAL CAROTID ARTERIES: There is no significant focal stenosis involving distal internal carotid a rteries by NASCET criteria. VERTEBROBASILAR SYSTEM: The vertebral basilar system likewise demonstrate appropriate caliber without significant focal narrowing. Correlation would be needed given the patient's history of unspecified "vertebral dissection" and any previous outside imaging. CEREBRAL ARTERIES: The proximal cerebral arteries and adjacent segments demonstrate appropriate calib er without focal stenosis. There is no clear CT evidence of large vessel occlusion. ANEURYSM: None identified. ADDITIONAL FINDINGS: The dural venous sinuses opacify with contrast. Correlation would also be needed given the patient's history of unspecified "arteriovenous malformation". There is no clear CTA evide nce of AVM though the timing bolus would obscure early filling of draining veins and correlation woul d again be needed regarding any previous outside exams. IMPRESSION: There is no CTA evidence of significant focal stenosis involving intracranial vessels. Correlation would be needed regarding the patient's history of unspecified "vertebral dissection" and "arteriovenous malformation "and any previous outside imaging. There was delay in dictating this stat exam in that I was not notified at the time of completion. Thi s study was dictated on an emergent basis once discovered at 12:06 PM Central standard time. Signer Name: Sebastien Shrestha MD Signed: 04/30/2020 1:08 PM Workstation Name: [id number]
--- NOTE | 2020-04-30 16:46 | Discharge Summary ---
Providers - Providers Date of Admission: 04/29/20 05:56 Date of discharge: 04/30/20 Attending physician: DINORAH FLORES 04/29/20 03:41 Consult to Physician [CONS] Routine Comment: Consulting Provider: ИРИНА YUSUF Physician Instructions: Reason For Exam: Seizure Disorder 04/29/20 06:34 Physical Therapy Evaluation and Treat [CONS] Routine Comment: Reason For Exam: Right lower extremity weakness Primary care physician: [employer] Hospitalization Condition: Critical Hospital course: 24-year-old -Portuguese female presenting to the emergency room today having had syncope and possible seizures at home. Patient indicates that she was having some twitching and numbness in her extremities about 3 days ago. She was said to have had a syncopal episode witnessed by her brother at home today. She was informed that she was shaking and subsequently became confused. Patient is 23 days and indicates that she did not have any complications during her . She has been having difficulty walking as she has weakness in the legs especially on the right lower extremity. She has also had some headache but denies any dizziness. She denies any blurry vision, no nausea vomiting, denies any neck pain, no chest pain or shortness of breath, no fever or chills, no hematuria or dysuria. She denies any sick contacts and no recent travel. She denies any contact with anyone with COVID-19. Patient denies any history of seizure disorder however she indicates that she has strong family history of seizures. Work-up in the emergency room today, CT scan of the head was unremarkable. Urinalysis reveals a UTI. Patient was evaluated by the tele-neurologist and recommendation is to have thyroid function tests, zinc, copper, ammonia, vitamin B12, antinuclear antigen and SSA done. MRI of the brain with and without contrast was also recommended. Patient has been started on IV Keppra for possible seizures. MRI brain CTA head and CTA neck were negative (1) Seizure Current Visit: Yes Status: Acute Plan to address problem: Patient was discharged on oral Keppra Patient to follow-up with neurology and get clearance for driving Patient was asked not to drive until she gets cleared by neurology (2) Syncope Current Visit: Yes Status: Acute Qualifiers: Syncope type: unspecified Qualified Code(s): R55 - Syncope and collapse Plan to address problem: Vasovagal (3) Difficulty walking Current Visit: Yes Status: Acute Plan to address problem: Able to walk well + Disposition: DC-01 TO HOME OR SELFCARE Core Measure Documentation - Palliative Care Palliative Care/ Comfort Measures: Not Applicable - Core Measures Any of the following diagnoses?: none Exam - Constitutional Vitals: Temp Pulse Resp BP Pulse Ox 97.8 F 63 18 95/59 100 04/30/20 08:14 04/30/20 08:14 04/30/20 08:14 04/30/20 08:14 04/30/20 08:14 General appearance: Present: no acute distress, well-nourished - EENT Eyes: Present: PERRL ENT: hearing intact, clear oral mucosa - Neck Neck: Present: supple, normal ROM - Respiratory Respiratory effort: normal Respiratory: bilateral: CTA - Cardiovascular Heart rate: 72 Rhythm: regular Heart Sounds: Present: S1 & S2. Absent: rub, click - Extremities Extremities: pulses symmetrical, No edema Peripheral Pulses: within normal limits - Abdominal General gastrointestinal: Present: soft, non-tender, non-distended, normal bowel sounds Female genitourinary: Present: normal - Integumentary Integumentary: Present: clear, warm, dry - Musculoskeletal Musculoskeletal: gait normal, strength equal bilaterally - Psychiatric Psychiatric: appropriate mood/affect, intact judgment & insight - Neurologic Neurologic: CNII-XII intact, moves all extremities Plan Activity: no restrictions Diet: regular Follow up with: BHARTI RAMIREZ MD [Primary Care Provider] - 3-5 Days GLADYS OLMOS MD [Referring] - 7 Days
[2020-05-01] MEDS ORDERED: levETIRAcetam 500 MG/5 ML ORAL LIQD PO SCH (10:00)
== END 2020-04-30 17:45 | disposition home or self-care (01) ==
LOC: ED 22:22 → INTOOBSV 04-29 05:56 → 4A 04-29 05:56
PROVIDERS: ADMIT Internal Medicine Geriatric Medicine; ATTEND Internal Medicine
DX: R56.9 Unspecified convulsions (principal); R55 Syncope and collapse; R41.0 Disorientation, unspecified; M62.81 Muscle weakness (generalized); R26.2 Difficulty in walking, not elsewhere classified; J45.909 Unspecified asthma, uncomplicated; R29.700 NIHSS score 0; F17.210 Nicotine dependence, cigarettes, uncomplicated; Z98.891 History of uterine scar from previous surgery
CPT/HCPCS: 36415; 70450; 70496; 70498; 70553; 80048; 80053; 81001; 82140; 82525; 82607; 84439; 84630; 84703; 85025; 85610; 86038; 86235; 87086; 96365; 96366; 96367; 96368; 96372; 96375; 97162; 99291; 99406; A9577; G0378; J0692; J1650; J1953; J2270; J3475; Q9967

== ENCOUNTER 2020-12-09 17:13 | Emergency (ER) | payer OTHER ==
[2020-12-09 17:36] VITALS: BP 124/67
--- NOTE | 2020-12-09 17:55 | Emergency Department Report ---
ED General Adult HPI - General Chief complaint: Neuro Symptoms/Deficit Stated complaint: NUMBNESS (L)SIDE OF FACE/ NECK PAIN Time Seen by Provider: 12/09/20 17:50 Source: patient Mode of arrival: Ambulatory Limitations: No Limitations - History of Present Illness Initial comments: The patient was evaluated in the emergency department for symptoms described in the history of present illness. He/she was evaluated in the context of the global COVID-19 pandemic, which necessitated consideration that the patient might be at risk for infection with the virus that causes COVID-19. Institutional protocols and algorithms that pertain to the evaluation of patients at risk for COVID-19 are in a state of rapid change based on information released by regulatory bodies including the CDC and federal and state organizations. These policies and algorithms were followed during the patient's care in the emergency department. Please note that these policies, procedures and recommendations changed on a rapid basis. 25-year-old -[place] female presents to the emergency room complaining of left side of face numbness, tongue numbness and crooked smile since last night. 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 Patient states she is currently on Keppra 500 mg twice a day. Patient denies any recent trauma. Patient states her last seizure was last month. She currently has no nausea no vomiting no headache chest pain or shortness of breath. Patient states her last menstrual period was 11/22/2020. Patient denies any viral-like symptoms but does states she had just prior to this incident a little pain on her left side of her neck. Patient denies any weakness. -: Last night Location: face Radiation: non-radiation Severity scale (0 -10): 2 Consistency: constant Improves with: none Worsens with: none Associated Symptoms: denies other symptoms Treatments Prior to Arrival: none - Related Data Previous Rx's Medication Instructions Recorded Last Taken Type Ibuprofen [Motrin 800 MG tab] 800 mg PO TID PRN #30 tablet 04/05/20 Unknown Rx oxyCODONE /ACETAMINOPHEN [Percocet 1 - 2 tab PO Q6HR PRN #14 tablet 04/05/20 Unknown Rx 5/325 mg] levETIRAcetam [Keppra TAB] 500 mg PO BID #60 tablet 04/30/20 Unknown Rx Acyclovir 400 mg PO 5XD 10 Days #50 tablet 12/09/20 Unknown Rx predniSONE [Deltasone] 50 mg PO QDAY #5 tab 12/09/20 Unknown Rx Allergies Allergy/AdvReac Type Severity Reaction Status Date / Time No Known Allergies Allergy Verified 03/03/16 05:20 ED Review of Systems ROS: Stated complaint: NUMBNESS (L)SIDE OF FACE/ NECK PAIN Other details as noted in HPI Comment: All other systems reviewed and negative ED Past Medical Hx - Past Medical History Previous Medical History?: Yes Hx Hypertension: No Hx Heart Attack/AMI: No Hx Congestive Heart Failure: No Hx Diabetes: No Hx Deep Vein Thrombosis: No Hx Renal Disease: Yes (kidney infection 09/2019) Hx Sickle Cell Disease: No Hx Seizures: Yes Hx Asthma: Yes (as a child) Hx COPD: No Hx HIV: No - Surgical History Past Surgical History?: Yes Additional Surgical History: c section x1 - Social History Smoking Status: Current Some Day Smoker - Medications Home Medications: Home Medications Medication Instructions Recorded Confirmed Last Taken Type Ibuprofen [Motrin 800 MG tab] 800 mg PO TID PRN #30 tablet 04/05/20 04/29/20 Unknown Rx oxyCODONE /ACETAMINOPHEN [Percocet 1 - 2 tab PO Q6HR PRN #14 tablet 04/05/20 04/29/20 Unknown Rx 5/325 mg] levETIRAcetam [Keppra TAB] 500 mg PO BID #60 tablet 04/30/20 Unknown Rx Acyclovir 400 mg PO 5XD 10 Days #50 tablet 12/09/20 Unknown Rx predniSONE [Deltasone] 50 mg PO QDAY #5 tab 12/09/20 Unknown Rx ED Physical Exam - General Limitations: No Limitations General appearance: alert, in no apparent distress - Head Head exam: Present: atraumatic, normocephalic - Eye Eye exam: Present: PERRL, EOMI, other (Left eye does not close tightly) - ENT ENT exam: Present: normal exam, mucous membranes moist - Expanded ENT Exam Expanded Mouth exam: Present: normal external inspection, tongue normal - Neck Neck exam: Present: normal inspection, full ROM. Absent: tenderness, lymphadenopathy - Respiratory Respiratory exam: Present: normal lung sounds bilaterally. Absent: accessory muscle use - Cardiovascular Cardiovascular Exam: Present: regular rate - Extremities Exam Extremities exam: Present: normal inspection, full ROM. Absent: pedal edema - Expanded Neurological Exam Expanded Neurological exam: Present: protecting the airway Patient oriented to: Present: person, place Cranial nerves: EOM's Intact: Normal, Gag Reflex: Normal, Tongue Deviation: Normal, Nystagmus: Normal, Facial Sensation: Normal, Facial Palsy with Forehead Movement: Abnormal Left, Facial Palsy without Forehead Movement: Abnormal Left Cerebellar function: Finger to Nose: Normal, Heel to Hassan: Normal, Romberg: Normal Upper motor neuron: Nato Neglect: Normal, Pronator Drift: Normal, Babinski Sign: Normal, Sensory Extinction: Normal Sensory exam: Upper Extremity Light Touch: Normal, Upper Extremity Pin Prick: Normal, Upper Extremity Temperature: Normal, UE 2 Point Discrimination: Normal, Lower Extremity Light Touch: Normal, Lower Extremity Pin Prick: Normal, Lower Extremity Temperature: Normal, LE 2 Point Discrimination: Normal Motor strength exam: RUE: 5, LUE: 5, RLE: 5, LLE: 5 Best Eye Response (Stratton): (4) open spontaneously Best Motor Response (Stratton): (6) obeys commands Best Verbal Response (Stratton): (5) oriented Libra Total: 15 - Psychiatric Psychiatric exam: Present: normal affect, normal mood - Skin Skin exam: Present: warm, dry, intact, normal color. Absent: rash ED Course Vital Signs 12/09/20 17:34 Temperature 98.3 F Pulse Rate 105 H Respiratory 18 Rate Blood Pressure 124/67 O2 Sat by Pulse 100 Oximetry ED Medical Decision Making - Medical Decision Making 25-year-old -[place] female presents to the emergency room complaining of left side of face numbness, tongue numbness and crooked smile since last night. 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 Patient states she is currently on Keppra 500 mg twice a day. Patient denies any recent trauma. Patient states her last seizure was last month. She currently has no nausea no vomiting no headache chest pain or shortness of breath. Patient states her last menstrual period was 11/22/2020. Patient denies any viral-like symptoms but does states she had just prior to this incident a little pain on her left side of her neck. Patient denies any weakness. Patient was evaluated by Dr. Fernández ER attending as well. 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 Patient will be placed on acyclovir 400 mg 5 times a day for 10 days as well as prednisone 50 mg daily for the next 5 days. Patient is referred to follow-up with her primary care provider. Critical care attestation.: If time is entered above; I have spent that time in minutes in the direct care of this critically ill patient, excluding procedure time. ED Disposition Clinical Impression: Dumont's palsy Disposition: 01 HOME / SELF CARE / HOMELESS Is pt being admited?: No Does the pt Need Aspirin: No Condition: Stable Instructions: Dumont Palsy, Adult Additional Instructions: Please take medication as prescribed. Follow-up with a neurologist or primary care provider if you have any further concerns. Prescriptions: Acyclovir 400 mg PO 5XD 10 Days #50 tablet predniSONE [Deltasone] 50 mg PO QDAY #5 tab Referrals: DELIO ANDREW II, MD [Staff Physician] - 3-5 Days Time of Disposition: 18:12
== END 2020-12-09 18:29 | disposition home or self-care (01) ==
LOC: ED 17:13
DX: G51.0 Bell's palsy (principal); J45.909 Unspecified asthma, uncomplicated; F17.200 Nicotine dependence, unspecified, uncomplicated; Z86.69 Personal history of other diseases of the nervous system and sense organs; Z98.890 Other specified postprocedural states; Z79.899 Other long term (current) drug therapy
CPT/HCPCS: 99281